=== PATIENT | male | born 1980 | race African-American/Black ===

== ENCOUNTER 2022-12-25 20:42 | Emergency (ER) | payer OTHER ==
[~2022-12-25] VITALS: Ht 185.4 cm; Wt 92.5 kg
[2022-12-25 21:31] VITALS: BP 136/87; O2SAT 100
[2022-12-25 22:59] VITALS: PULSE 88; RESP 14; TEMP 98.2
== END 2022-12-25 23:03 | disposition home or self-care (01) ==
LOC: ER 20:42
DX: R68.89 Other general symptoms and signs (principal)
CPT/HCPCS: 99281